=== PATIENT | male | born 1940 | race Caucasian/White ===

== ENCOUNTER → 2019-01-08 | Outpatient (REF) ==
[~2019-01-08] MED LIST: ADLT ASA LOW81 MG PO; ALLOPURINOL300 MG PO; ASPIRIN 81 LOW81 MG PO; ASPIRIN81 MG PO; CIPRO XR500 MG PO; CIPROFLOXACN500 MG PO; DILAUDID 2MG2 MG/TA1 PO; DILAUDID 2MG2 MG/TAB PO; DILAUDID2 MG PO; LEVAQUIN750 MG PO; METOPROL TAR25 MG PO; METOPROL TAR50 MG PO; SIMVASTATIN40 MG PO; TAMIFLU SUSP 6MG/ML PO; TAMSULOSIN0.4 MG PO
== END | disposition home or self-care (01) | DRG 642 ==
LOC: LAB 10:19
PROVIDERS: ATTEND Internal Medicine
DX: E78.49 Other hyperlipidemia (principal)

== ENCOUNTER 2019-07-06 18:01 | Observation (INO) | payer MEDICARE ==
[~2019-07-06] VITALS: Ht 175.3 cm; Wt 79.0 kg
[2019-07-06 18:36] LABS: HEMOGLOBIN 12.9 g/dl (14.0-18.0); IMMATURE GRANULOCYTES 0.5 % (0.0-5.0); MEAN CELL VOLUME 85.3 fL CALC (80.0-100.0); MEAN CORPUSCULAR HGB 25.6 pG CALC (26.0-32.0); NEUT# 1.86 thou/uL (1.82-7.42); RED BLOOD COUNT 5.04 mill/uL (4.70-6.10)
[2019-07-06 18:50] LABS: ANION GAP 11 (6-22 (CALC)); BUN 20 mg/dL (8-23); BUN/CREATININE RATIO 14 (12-20 (CALC)); CARBON DIOXIDE 28 mmol/l (22-30); CHLORIDE 105 mmol/l (95-108); CREATININE 1.4 mg/dL (0.7-1.3); GFR 49 ML/MIN (>=60 (CALC)); GFR FOR AFR.AMER. 59 ML/MIN (>=60 (CALC)); POTASSIUM 4.4 mmol/l (3.5-5.1); SODIUM 140 mmol/l (137-146)
[2019-07-06] MEDS ORDERED: DONEPEZIL5 MG PO (19:14)
[2019-07-06] MEDS ORDERED: ELIQUIS5 MG PO ×2 (19:15→21:33)
[2019-07-06] MEDS ORDERED: TAMSULOSIN HCL0.4 MG PO (19:15)
[2019-07-06] MEDS ORDERED: POMALYST PO (19:18)
[2019-07-06 19:33] VITALS: BP 130/57
[2019-07-06 19:34] VITALS: BP 140/67
[2019-07-06 19:35] VITALS: BP 150/75
[2019-07-06 19:42] LABS: URINE BILIRUBIN - DIPSTICK NEGATIVE (NEGATIVE); URINE BLOOD DIPSTICK LARGE (NEGATIVE); URINE COLOR YELLOW; URINE GLUCOSE - DIPSTICK NEGATIVE (NEGATIVE); URINE KETONE NEGATIVE (NEGATIVE); URINE LEUK ESTERASE NEGATIVE (NEGATIVE); URINE NITRITE - DIPSTICK NEGATIVE (Negative); URINE PROTEIN - DIPSTICK NEGATIVE (NEG-TRACE); URINE UROBILINOGEN - DIPSTICK 0.2 E.U./dL (0.2)
[2019-07-06 19:50] LABS: URINE WBC 0-2 WBC/hpf (0-5)
[2019-07-06 20:30] VITALS: BP 142/57
[2019-07-07 00:24] VITALS: BP 125/64
[2019-07-07 03:42] VITALS: BP 115/60
[2019-07-07 03:46] VITALS: BP 109/59
[2019-07-07 07:30] VITALS: BP 142/66
[2019-07-07 11:21] VITALS: BP 123/62
[2019-07-07 16:00] VITALS: BP 162/69
== END 2019-07-07 18:00 | disposition home or self-care (01) ==
LOC: ED 18:01 → ED-I 19:55 → ED 20:12 → MS2 20:13
PROVIDERS: Family Medicine; ADMIT Internal Medicine; ATTEND Internal Medicine
DX: R00.1 Bradycardia, unspecified (principal); I48.0 Paroxysmal atrial fibrillation; I12.9 Hypertensive chronic kidney disease with stage 1 through stage 4 chronic kidney disease, or unspecified chronic kidney disease; N18.3 Chronic kidney disease, stage 3 (moderate); I25.10 Atherosclerotic heart disease of native coronary artery without angina pectoris; E78.5 Hyperlipidemia, unspecified; C90.00 Multiple myeloma not having achieved remission; Z86.73 Personal history of transient ischemic attack (TIA), and cerebral infarction without residual deficits; Z79.01 Long term (current) use of anticoagulants; Z95.1 Presence of aortocoronary bypass graft; Z95.818 Presence of other cardiac implants and grafts; Z53.29 Procedure and treatment not carried out because of patient's decision for other reasons

== ENCOUNTER 2019-11-23 | Emergency (ER) | payer MEDICARE ==
[~2019-11-23] MED LIST changes: +DONEPEZIL5 MG PO; +ELIQUIS5 MG PO; +POMALYST PO; +TAMSULOSIN HCL0.4 MG PO
[2019-11-23] MEDS ORDERED: TRAMADOL HCL50 MG PO (08:12)
[2019-11-23] MEDS ORDERED: POMALIDOMIDE 2 MG (08:13)
[2019-11-23 08:42] LABS: HEMATOCRIT 39.4 % (39.0-50.0); HEMOGLOBIN 11.7 g/dl (14.0-18.0); IMMATURE GRANULOCYTES 0.5 % (0.0-5.0); MEAN CELL VOLUME 83.5 fL CALC (80.0-100.0); MEAN CORPUSCULAR HGB 24.8 pG CALC (26.0-32.0); MEAN CORPUSCULAR HGB CONC 29.7 g/L CALC (32.0-36.0); NEUT# 2.33 thou/uL (1.82-7.42); RED BLOOD COUNT 4.72 mill/uL (4.70-6.10); RED CELL DISTRI WIDTH 17.6 % (11.5-15.5)
[2019-11-23 09:02] LABS: ACT PARTIAL THROMBO TIME 29.2 SECONDS (20.0-32.5); PROTHROMBIN TIME 10.7 SECONDS (9.0-12.5)
[2019-11-23 09:03] LABS: ALBUMIN 3.7 g/dL (3.2-5.0); BILIRUBIN, TOTAL 0.9 mg/dL (0.0-1.4); CREATININE 1.5 mg/dL (0.7-1.3); POTASSIUM 4.5 mmol/l (3.5-5.1); TOTAL PROTEIN 6.6 g/dL (6.3-8.2)
[2019-11-23 09:33] LABS: URINE BILIRUBIN - DIPSTICK NEGATIVE (NEGATIVE); URINE COLOR YELLOW; URINE GLUCOSE - DIPSTICK NEGATIVE (NEGATIVE); URINE KETONE NEGATIVE (NEGATIVE); URINE LEUK ESTERASE NEGATIVE (NEGATIVE); URINE NITRITE - DIPSTICK NEGATIVE (Negative); URINE PROTEIN - DIPSTICK TRACE mg/dL (NEG-TRACE); URINE UROBILINOGEN - DIPSTICK 0.2 E.U./dL (0.2)
[2019-11-23 09:34] LABS: URINE BLOOD DIPSTICK TRACE (NEGATIVE)
[2019-11-23] MEDS ORDERED: TRAMADOL HYDROC50 MG PO (10:57)
[2019-11-23] MEDS ORDERED: MEDDOSEPAK PO (10:57)
[2019-11-23] MEDS ORDERED: FLEXERIL PO (10:57)
== END 2019-11-23 11:08 | disposition home or self-care (01) ==
DX: M54.42 Lumbago with sciatica, left side (principal); R00.1 Bradycardia, unspecified; N40.0 Benign prostatic hyperplasia without lower urinary tract symptoms; I10 Essential (primary) hypertension; I69.920 Aphasia following unspecified cerebrovascular disease; C90.00 Multiple myeloma not having achieved remission; Z79.01 Long term (current) use of anticoagulants
CPT/HCPCS: Q9967

== ENCOUNTER 2020-01-02 | Emergency (ER) | payer MEDICARE ==
[~2020-01-02] MED LIST changes: +FLEXERIL PO; +MEDDOSEPAK PO; +POMALIDOMIDE 2 MG; +TRAMADOL HCL50 MG PO; +TRAMADOL HYDROC50 MG PO
[2020-01-02 13:02] LABS: HEMOGLOBIN 13.5 g/dl (14.0-18.0); MEAN CELL VOLUME 82.8 fL CALC (80.0-100.0); MEAN CORPUSCULAR HGB 26.6 pG CALC (26.0-32.0); MEAN CORPUSCULAR HGB CONC 32.1 g/L CALC (32.0-36.0); NEUT# 3.55 thou/uL (1.82-7.42); RED BLOOD COUNT 5.07 mill/uL (4.70-6.10); RED CELL DISTRI WIDTH 19.4 % (11.5-15.5)
[2020-01-02 13:07] LABS: PROTHROMBIN TIME 10.7 SECONDS (9.0-12.5)
[2020-01-02 13:08] LABS: ALBUMIN 3.8 g/dL (3.2-5.0); ALKALINE PHOSPHATASE 69 u/l (38-126); ANION GAP 12 (6-22 (CALC)); BUN 20 mg/dL (8-23); BUN/CREATININE RATIO 16 (12-20 (CALC)); CARBON DIOXIDE 25 mmol/l (22-30); CHLORIDE 104 mmol/l (95-108); CREATININE 1.2 mg/dL (0.7-1.3); ETHYL ALCOHOL 0 mg/dl (0-30); GFR 58 ML/MIN (>=60 (CALC)); GFR FOR AFR.AMER. > 60 ML/MIN (>=60 (CALC)); LIPASE 86 u/l (23-300); MAGNESIUM 1.8 mg/dL (1.6-2.3); POTASSIUM 4.3 mmol/l (3.5-5.1); SODIUM 137 mmol/l (137-146); TOTAL PROTEIN 6.6 g/dL (6.3-8.2)
[2020-01-02 13:09] LABS: SGOT/AST 25 u/l (19-48)
[2020-01-02 14:50] LABS: URINE BILIRUBIN - DIPSTICK NEGATIVE (NEGATIVE); URINE BLOOD DIPSTICK NEGATIVE (NEGATIVE); URINE COLOR YELLOW; URINE GLUCOSE - DIPSTICK NEGATIVE (NEGATIVE); URINE KETONE NEGATIVE (NEGATIVE); URINE LEUK ESTERASE NEGATIVE (NEGATIVE); URINE NITRITE - DIPSTICK NEGATIVE (Negative); URINE PROTEIN - DIPSTICK NEGATIVE (NEG-TRACE); URINE UROBILINOGEN - DIPSTICK 0.2 E.U./dL (0.2)
[2020-01-02] MEDS ORDERED: DONEPEZIL HYDROC5 MG PO (15:05)
[2020-01-02] MEDS ORDERED: LEVAQUIN500 MG PO (15:14)
== END 2020-01-02 15:30 | disposition home or self-care (01) ==
DX: R55 Syncope and collapse (principal); J18.9 Pneumonia, unspecified organism; I10 Essential (primary) hypertension; Z95.0 Presence of cardiac pacemaker; Z95.1 Presence of aortocoronary bypass graft; Z86.73 Personal history of transient ischemic attack (TIA), and cerebral infarction without residual deficits; Z88.1 Allergy status to other antibiotic agents; Z88.0 Allergy status to penicillin
CPT/HCPCS: Q9967